=== PATIENT | female | born 1960 | race Caucasian/White ===

== ENCOUNTER 2019-02-06 05:49 | Day surgery (SDC) | payer BC ==
[2019-02-06] MEDS ORDERED: DEXAMETHASONE 4 MG/ML 1ML VIAL IVP ONE (05:50)
[2019-02-06] MEDS ORDERED: TRANEXAMIC ACID 1,000 MG/10 ML ML IV ONE (05:50)
[2019-02-06] MEDS ORDERED: GLYCOPYRROLATE 0.2 MG/ML ML IV ONE (05:50)
[2019-02-06] MEDS ORDERED: KETAMINE HCL 100MG/1ML VIAL INJ ONE (05:50)
[2019-02-06] MEDS ORDERED: VANCOMYCIN HCL 1 GM VIAL IVPB ONE (05:50)
[2019-02-06] MEDS ORDERED: PROPOFOL 10 MG/ML VIAL IV ONE (05:50)
[2019-02-06] MEDS ORDERED: MIDAZOLAM HCL 2MG/2ML VIAL IV ONE (05:50)
[2019-02-06] MEDS ORDERED: LIDOCAINE 2% MDV (20MG/ML) 20ML VIAL IV ONE (05:50)
[2019-02-06] MEDS ORDERED: ROPIVACAINE HCL (NAROPIN) /PF 5MG/ML 20ML VIAL IV ONE (05:50)
[2019-02-06] MEDS ORDERED: METOCLOPRAMIDE 10 MG TABLET PO ONE (06:00)
[2019-02-06] MEDS ORDERED: CEFAZOLIN 2 Gram 2 GM/50 ML BAG IVPB ONE (06:00)
[2019-02-06] MEDS ORDERED: SCOPOLAMINE 1 PATCH TDSY TD ONE (06:00)
[2019-02-06] MEDS ORDERED: FAMOTIDINE 20MG TABLET PO ONE (06:00)
[2019-02-06] MEDS ORDERED: CELECOXIB 100 MG CAPSULE PO ONE (06:00)
[2019-02-06] MEDS ORDERED: ACETAMINOPHEN 500 MG TABLET PO ONE (06:00)
[2019-02-06] MEDS ORDERED: VANCOMYCIN 1GM/200ML PREMIX 1 GM/200 ML PIGGYBACK IVPB ONE (06:00)
[2019-02-06 06:17] LABS: URINE APPEARANCE CLEAR; URINE BILIRUBIN NEGATIVE (NEGATIVE); URINE BLOOD NEGATIVE (NEGATIVE); URINE COLOR YELLOW; URINE GLUCOSE (UA) NEGATIVE (NEGATIVE); URINE KETONE NEGATIVE (NEGATIVE); URINE LEUKOCYTE ESTERASE NEGATIVE (NEGATIVE); URINE NITRITE NEGATIVE (NEGATIVE); URINE PROTEIN NEGATIVE (NEGATIVE)
[2019-02-06] MEDS ORDERED: RINGERS SOLUTION,LACTATED 1,000 ML IV ONE ×3 (06:40→09:26)
[2019-02-06 06:42] LABS: INR 1.1; PROTHROMBIN TIME (PATIENT) 10.9 SECONDS (9.5-12.1)
[2019-02-06 07:18] LABS: ABO GROUP A; ANTIBODY SCREEN NEGATIVE (NEGATIVE); RH TYPE POSITIVE
[2019-02-06] MEDS ORDERED: TRAMADOL HCL 50 MG TABLET PO PRN ×2 (08:18)
[2019-02-06] MEDS ORDERED: ACETAMINOPHEN W/ CODEINE 300MG/60MG TABLET PO PRN ×2 (08:18)
[2019-02-06] MEDS ORDERED: KETOROLAC 30 MG/ML VIAL IVP PRN ×2 (08:18)
[2019-02-06] MEDS ORDERED: METOCLOPRAMIDE 10 MG TABLET PO PRN (08:18)
[2019-02-06] MEDS ORDERED: MAGNESIUM HYDROXIDE 30 ML UDC PO PRN (08:18)
[2019-02-06] MEDS ORDERED: BISACODYL 10 MG SUPP RC PRN (08:18)
[2019-02-06] MEDS ORDERED: DIPHENHYDRAMINE HCL 25 MG CAPSULE PO PRN (08:18)
[2019-02-06] MEDS ORDERED: ACETAMINOPHEN W/ CODEINE 300MG/30MG TABLET PO PRN ×2 (08:18)
[2019-02-06] MEDS ORDERED: HYDROCODONE/APAP 7.5/325MG TABLET PO PRN ×2 (08:18)
[2019-02-06] MEDS ORDERED: NALOXONE 0.4 MG/1 ML VIAL IVP PRN (08:18)
[2019-02-06] MEDS ORDERED: AL HYDROX/MAG HYDROX 30ML UD PO PRN (08:18)
[2019-02-06] MEDS ORDERED: ACETAMINOPHEN 325 MG TAB PO PRN (08:18)
[2019-02-06] MEDS ORDERED: PROMETHAZINE HCL 25 MG TABLET PO PRN (08:18)
[2019-02-06] MEDS ORDERED: HYDROCODONE/APAP 5/325MG TABLET PO PRN ×2 (08:18)
[2019-02-06] MEDS ORDERED: ONDANSETRON 4 MG ODT TABLET SL PRN (08:18)
[2019-02-06] MEDS ORDERED: BUPIVACAINE 0.5% W/EPI MPF 30 ML VIAL SQ ONE (08:32)
[2019-02-06] MEDS ORDERED: BUPIVACAINE LIPOSOME 266MG/20ML VIAL SQ ONE (08:32)
[2019-02-06] MEDS ORDERED: DOCUSATE SODIUM 100 MG CAPSULE PO SCH (10:00)
[2019-02-06] MEDS ORDERED: DEXTROSE 5 % AND 0.9 % NACL 1,000 ML IV PRN (10:30)
[2019-02-06] MEDS ORDERED: VANCOMYCIN HCL 500 MG in 0.9 % SODIUM CHLORIDE 100ML 100 ML IVPB SCH (11:00)
--- NOTE | 2019-02-06 13:31 | Rehab Evaluation ---
Patient Information - Patient Information Diagnosis: L knee OA Ordered Treatment: PT Evaluate and Treat Status: Initial Evaluation Surgery: Yes (L TKA) Date of Surgery: 02/06/19 Past Medical/Surgical Hx: PAST MEDICAL/SURGICAL HISTORY Past Surgical History HYST PREM BILAT HIP REPLACEMENT PMH - Respiratory Hx Respiratory Disorders No PMH - Cardiovascular Hx Cardiovascular Disorders Yes Hx Deep Vein Thrombosis Yes: LEFT LEG X'S 2 LAST TIME 2015 ON COUMADIN Hx Hypertension Yes: PT STOPPED MEDS D/T SE'S ADVISED TO FU W PCP BEFORE SX Exercise Tolerance Fair PMH - Neuro Hx Neurological Disorders No PMH - GI Hx Gastrointestinal Disorders Yes Hx Gastroesophageal Reflux Yes: TAKES PRILOSEC OCCASSIONALLY PMH - Hx Genitourinary Disorders No Comment: S/P HYST PMH - Endocrine Hx Endocrine Disorders No PMH - Musculoskeletal Hx Musculoskeletal Disorders Yes Hx Arthritis Yes: LEFT KNEE, SHOULDERS PMH - Psych Hx Psychiatric Problems No PMH - Hematology/Oncology Hx Hematology/Oncology No Disorders Premorbid Status: Detail (Prior to surgery the pt. 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 The bathroom is equipped with the following: tub/shower combination, tub seat, hand held shower, standard height toilet. No grab bars are present in the bathroom. The patient has crutches.) Precautions: Shannon, Fall, Other (WBAT on the L LE.) - Time With Patient Total Time Spent With Patient (Min): 30 Treatment Procedures: Detail (Initial Evaluation, low complexity.) Subjective Information - Subjective Information Per Patient (The patient has complaints of L knee pain, level 1 using 0-10 pain scale.) Objective Data - Mental Status Patient Orientation: Oriented x3 - Visual Perception Appears within normal limits for therapeutic activities - ROM Not within normal limits (The patient's L knee AROM was limited as to be expected s/p surgery. All other LE AROM was limited.) - Strength/Tone Not within normal limits (The patient's LE strength was not tested s/p surgery however was functional ie: patient was ambulatory and able to lift LE's in and out of bed.) - Bed Mobility Independent (The patient was independent with supine to and from sit transfer.) - Transfers Independent (The patient was independent with sit to and from stand transfer.) - Balance Balance Sitting: Good Balance Standing: Good - Gait Detail (The patient ambulated with crutches a distance of 108 feet x 1 WBAT on the L LE using a correct reciprocal gait pattern. The patient ambulated on 3 steps with use one railing and crutches using correct gait pattern, independently/supervision for safety.) Therapy Assessment - Therapy Assessment Detail (The patient was indpendent with ambulation, transfers, bed mobility and TKA HEP. The patient has met all inpatient PT goals.) Patient Education - Patient Education Teaching Topic: Exercise/Activity (The patient completed the following TKA HEP: seated and supine heel slides, ankle pumps, quad sets, gluteal sets, SLR and hamstring sets.) Response: Return Demonstration Teaching Method: Discussion, Demonstration, Handout Teaching Recipient: Patient Barriers To Learning: None Problem List - Problem List Physical Therapy Problem List: Detail (Decreased L knee AROM and L LE strength as to be expected following surgery.) Goals - Goals Physical Therapy Goals: The patient has met all inpatient PT goals. Prognosis - Prognosis Good Plan - Plan Physical Therapy Plan: The patient is discharged from inpatient PT and is to receive Home PT services.
--- NOTE | 2019-02-06 14:16 | Rehab Evaluation ---
Patient Information - Patient Information Diagnosis: L knee OA Ordered Treatment: OT Evaluate and Treat Status: Initial Evaluation Surgery: Yes (L TKA) Date of Surgery: 02/06/19 Past Medical/Surgical Hx: PAST MEDICAL/SURGICAL HISTORY Past Surgical History HYST PREM BILAT HIP REPLACEMENT PMH - Respiratory Hx Respiratory Disorders No PMH - Cardiovascular Hx Cardiovascular Disorders Yes Hx Deep Vein Thrombosis Yes: LEFT LEG X'S 2 LAST TIME 2015 ON COUMADIN Hx Hypertension Yes: PT STOPPED MEDS D/T SE'S ADVISED TO FU W PCP BEFORE SX Exercise Tolerance Fair PMH - Neuro Hx Neurological Disorders No PMH - GI Hx Gastrointestinal Disorders Yes Hx Gastroesophageal Reflux Yes: TAKES PRILOSEC OCCASSIONALLY PMH - Hx Genitourinary Disorders No Comment: S/P HYST PMH - Endocrine Hx Endocrine Disorders No PMH - Musculoskeletal Hx Musculoskeletal Disorders Yes Hx Arthritis Yes: LEFT KNEE, SHOULDERS PMH - Psych Hx Psychiatric Problems No PMH - Hematology/Oncology Hx Hematology/Oncology No Disorders Premorbid Status: Detail (Prior to surgery the pt. was independent with all mobility, meal prep, laundry and home mgmt tasks.) Social History: Detail (The patient lives alone in a one story house with one step at the entrance with one handrail. The bathroom is equipped with the following: tub/shower combination, tub seat, hand held shower, standard height toilet. No grab bars are present in the bathroom. 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 Her grand daughter and daughter are available to help if needed.) Precautions: Santa Claus, Fall, Other (WBAT on the L LE.) - Time With Patient Total Time Spent With Patient (Min): 40 Treatment Procedures: Detail (OT eval low complexity) Subjective Information - Subjective Information Per Patient Objective Data - Pain Pain Present: Yes (07/14) - Mental Status Patient Orientation: Oriented x3 - Visual Perception Appears within normal limits for therapeutic activities - ROM Within normal limits (Primitivo UE AROM WNL) - Strength/Tone Within normal limits (Primitivo UE strength WNL) - Coordination Appears within normal limits for therapeutic activities - Bed Mobility Independent (Ind with supine to sit) - Transfers Independent (Ind with sit to stand from EOB and toilet heights.) - Balance Balance Sitting: Good Balance Standing: Good - Sensation Intact - Gait Detail (Pt ambulating in room with crutches and SBA.) - ADL's/IADL's Detail (Pt educated and able to demonstrate learning of modified LE dressing t echniques including doffing slipper socks and donning shorts, socks and tennis shoes. Reviewed kitchen and shower modifications, pt able to verbalize understanding.) Therapy Assessment - Therapy Assessment Detail (Pt able to demonstrate Ind with modified LE dressing techniques.) Problem List - Problem List Occupational Therapy Problem List: Detail (No current IP OT problems identified.) Goals - Goals Occupational Therapy Goals: No current IP OT goals identified. Prognosis - Prognosis Good Plan - Plan Occupational Therapy Plan: No further IP OT recommended. Thank you for this referral.
--- NOTE | 2019-02-16 14:10 | Operative Note ---
DATE OF SURGERY: 02/06/2019 PREOPERATIVE DIAGNOSIS: End-stage left knee arthrosis. POSTOPERATIVE DIAGNOSIS: End-stage left knee arthrosis. OPERATION: Left total knee arthroplasty. SURGEON: Cheikh Mayorga MD ANESTHESIA: Spinal. ANESTHESIA PROVIDER: ALLEY Botello COMPLICATIONS: None. ESTIMATED BLOOD LOSS: Minimal. TOURNIQUET TIME: No tourniquet. OPERATIVE FINDINGS: [id number] valgus arthrosis. COMPONENTS PLACED: A 2 g vancomycin cemented Fulton and Nephew Journey II Oxinium total knee arthroplasty system, size 7 femoral component, a size 7 mm tibial component, a 9 mm thick tibial poly insert, and 32 mm cemented patellar component. INDICATIONS: This is a 58-year-old female with end-stage bilateral knee arthrosis who failed nonoperative treatment. Scheduled for knee replacement. I explained all risks and benefits in detail for the diagnosis and procedure including but not limited to infection, nerve injury, vessel injury, persistent pain, stiffness, numbness, tingling in the knee, periprosthetic fracture, need for resection arthroplasty if components become infected or loosen, nerve injury, vessel injury, blood clot, and need for further procedures. All questions were answered. Rehab course was outlined. She agreed to proceed. PROCEDURE: The patient brought to the OR, placed in the supine position, prepped for surgery. Spinal anesthesia induced. The left lower extremity and knee were prepped and draped in sterile fashion. Left knee prepped again with Chloraprep after it was draped. Intraoperative timeout was performed. Next, the leg was exsanguinated. No tourniquet was used. The incision anterior was marked, infiltrated with 0.5% Marcaine with epinephrine. Skin and subcutaneous tissue dissected down. Incised the capsule medially along the medial border of the patella to the tibial tubercle. Incised the vastus medialis in line with its fibers. Elevated the capsule subperiosteally and medially. Partially resected the retropatellar fat pad. Carefully cauterized coating all the tissue with Aquamantys until we had adequate hemostasis and then flexed the knee. She had [id number] lateral component and also medial component arthrosis. Drilled intracondylar drill hole, inserted the intramedullary guide rhonda, 6- degree cutting block, aligned off the distal femoral condyles, and pinned it in +2 mm position and cut the distal femoral condyles. Next, on the distal femoral condyle, we placed a sizing jig and sized it to be right on size 7. Through the previously-placed pin holes, we placed a size 7 cutting jig. We dialed in the anterior cut so it would come out flush without notching. We cut that cut. It was a good flush cut. We then pinned the cutting jig and cut the remainder of chamfer cuts in the usual fashion. Next, placed a size trial 7 trial femoral component, centered it, pinned it, and placed the resection collet, reamed out and box osteotomed out the cruciate bone block. Attention was turned to the tibia. Placed the external alignment jig in the tibia after exposing it, seated the spikes in the tubercular groove 2 fingerbreadths distal to the anterior tibial cortex in reference for a 7 mm cut off the higher lateral plateau. We pinned the cutting jig provisionally through anterior-posterior pins. We rechecked the cutting jig with a drop rhonda centered on the tibial anatomic axis and cut the tibia and cross-pinned and completed fixation and cut the tibia. Next, we removed osteophytes off the posterior femoral condyle. Checked the flexion/extension gaps. She had symmetric flexion/extension gaps with a 9 mm thick poly insert. Allowed for 2-3 mm of varus/valgus laxity in flexion/extension. Overall alignment cuts in extension was anatomic in valgus orientation with alignment rhonda centered on the hip joint and ankle joint. Next, took in flexion and sized the tibial baseplate to be 7. We placed all trial components, set the rotation tibial baseplate again extension using the alignment rhonda centered on hip joint and ankle joint. Marked pastor on the anterior tibial cortex off the laser pastor of the tibial baseplate. Attention was turned to the patella, and measured the patella to be 22 mm. We cut the cutting jig at 13 mm to allow for a 9 mm thick insert. Cut the tibia, cut the patella, chamfered off the lateral patellar facet, and remeasured it right on 13. We sized the patella to be 32, medialized as much as possible, drilled 3 peg holes. Placed the trial patella component, did range of motion. Mixed cement. The patella tracked nicely handsfree, full extension and flexion to 140-15- degrees, again symmetric flexion/extension gap. Next, we took the knee in flexion, seated the tibial baseplate off the previously placed electrocautery pastor, pinned it in place and reamed out and keel punched the keel hole. Next, we changed gloves, put in a clean sheet. Copiously irrigated natividad surfaces and with antibiotic solution. Impacted down the tibial component removing excess cement, then the femoral component removing excess cement, then placed a tibial poly liner, held the knee in extension until the cement hardened. Clamped down the patella component. Once cement hardened, took the knee in flexion. Distracted the knee with the bone hook and sponge and removed trial patella tibial component. injected the posterior capsule medial and lateral with our 0.5% Marcaine with epinephrine, tranexamic acid, and Exparel mixtures and then inserted the real tibial poly insert, verified it was interlocked medially and laterally. Found the range of motion to be the same. Irrigated copiously, closed the capsule and vastus medialis in flexion after we cauterized again with running #2 quill suture. Irrigated again, closed skin with 2-0 Vicryl and a temporary dressing was applied with Acticoat to be changed to ANGEL dressing prior to discharge. The patient tolerated the procedure well. No intraoperative complications. Sponge, needle, and blade counts correct. Recovery room stable, neurovascular intact. Discharged as an outpatient. She will have home therapy nurse start today and follow up in 2 weeks. CHRISTIANO
== END 2019-02-06 14:45 | disposition home health service (06) ==
LOC: SUR 05:49 → MEDSURG 10:29 → SUR 14:45
PROVIDERS: ATTEND Orthopaedic Surgery
DX: M17.12 Unilateral primary osteoarthritis, left knee (principal); Z79.01 Long term (current) use of anticoagulants; K21.9 Gastro-esophageal reflux disease without esophagitis; M19.90 Unspecified osteoarthritis, unspecified site; Z86.718 Personal history of other venous thrombosis and embolism
CPT/HCPCS: 27447; 01402; 64447; 85610; 81003; 86900; 86901; 86850; J3370 ×2; C9290; J3490 ×2; J2795; 76942; J7120

== ENCOUNTER 2019-06-19 05:45 | Day surgery (SDC) | payer BC ==
[2019-06-19] MEDS ORDERED: MIDAZOLAM HCL 2MG/2ML VIAL IV ONE (05:46)
[2019-06-19] MEDS ORDERED: DEXAMETHASONE 4 MG/ML 1ML VIAL IVP ONE (05:46)
[2019-06-19] MEDS ORDERED: ROPIVACAINE HCL (NAROPIN) /PF 5MG/ML 20ML VIAL IV ONE (05:46)
[2019-06-19] MEDS ORDERED: PROPOFOL 10 MG/ML VIAL IV ONE (05:46)
[2019-06-19] MEDS ORDERED: LIDOCAINE 2% MDV (20MG/ML) 20ML VIAL IV ONE (05:46)
[2019-06-19] MEDS ORDERED: *PACU ONLY* KETAMINE HCL 10 MG/ML (20ML) VIAL IV ONE (05:46)
[2019-06-19] MEDS ORDERED: FENTANYL PF 100MCG/2ML VIAL IV ONE (05:46)
[2019-06-19] MEDS ORDERED: CEFAZOLIN 2 Gram 2 GM/50 ML BAG IVPB ONE (06:00)
[2019-06-19] MEDS ORDERED: CEFAZOLIN 1 Gram 1 GM/50 ML BAG IVPB ONE (06:00)
[2019-06-19] MEDS ORDERED: ACETAMINOPHEN 500 MG TABLET PO ONE (06:00)
[2019-06-19] MEDS ORDERED: METOCLOPRAMIDE 10 MG TABLET PO ONE (06:00)
[2019-06-19] MEDS ORDERED: SCOPOLAMINE 1 PATCH TDSY TD ONE (06:00)
[2019-06-19] MEDS ORDERED: CELECOXIB 100 MG CAPSULE PO ONE (06:00)
[2019-06-19] MEDS ORDERED: VANCOMYCIN 1GM/200ML PREMIX 1 GM/200 ML PIGGYBACK IVPB ONE (06:00)
[2019-06-19] MEDS ORDERED: FAMOTIDINE 20MG TABLET PO ONE (06:00)
[2019-06-19 06:14] LABS: URINE BILIRUBIN NEGATIVE (NEGATIVE); URINE BLOOD TRACE-I (NEGATIVE); URINE COLOR YELLOW; URINE GLUCOSE (UA) NEGATIVE (NEGATIVE); URINE KETONE NEGATIVE (NEGATIVE); URINE LEUKOCYTE ESTERASE NEGATIVE (NEGATIVE); URINE NITRITE NEGATIVE (NEGATIVE); URINE PROTEIN NEGATIVE (NEGATIVE); URINE UROBILINOGEN 0.2 E.U./dL (0.20 - 1.00)
[2019-06-19 06:17] LABS: URINE APPEARANCE SL CLOUDY
[2019-06-19 06:24] LABS: URINE BACTERIA 3+; URINE WBC 0 - 2 (0-2/hpf)
[2019-06-19 06:28] LABS: INR 1.1; PARTIAL THROMBOPLASTIN TIME 25.9 SECONDS (24.5-39.1); PROTHROMBIN TIME (PATIENT) 11.2 SECONDS (9.5-12.1)
[2019-06-19] MEDS ORDERED: RINGERS SOLUTION,LACTATED 1,000 ML IV ONE ×3 (06:45→09:28)
[2019-06-19 07:31] LABS: ABO GROUP A; ANTIBODY SCREEN NEGATIVE (NEGATIVE); RH TYPE POSITIVE
[2019-06-19] MEDS ORDERED: HYDROCODONE/APAP 7.5/325MG TABLET PO PRN (08:29)
[2019-06-19] MEDS ORDERED: ACETAMINOPHEN W/ CODEINE 300MG/30MG TABLET PO PRN ×2 (08:29)
[2019-06-19] MEDS ORDERED: HYDROMORPHONE HCL 2 MG/ML VIAL IM PRN ×2 (08:29)
[2019-06-19] MEDS ORDERED: ACETAMINOPHEN 325 MG TAB PO PRN (08:29)
[2019-06-19] MEDS ORDERED: PROMETHAZINE HCL 25 MG TABLET PO PRN (08:29)
[2019-06-19] MEDS ORDERED: HYDROCODONE/APAP 5/325MG TABLET PO PRN ×2 (08:29)
[2019-06-19] MEDS ORDERED: ACETAMINOPHEN W/ CODEINE 300MG/60MG TABLET PO PRN (08:29)
[2019-06-19] MEDS ORDERED: ONDANSETRON 4 MG ODT TABLET SL PRN (08:29)
[2019-06-19] MEDS ORDERED: BISACODYL 10 MG SUPP RC PRN (08:29)
[2019-06-19] MEDS ORDERED: TRAMADOL HCL 50 MG TABLET PO PRN ×2 (08:29)
[2019-06-19] MEDS ORDERED: MAGNESIUM HYDROXIDE 30 ML UDC PO PRN (08:29)
[2019-06-19] MEDS ORDERED: DIPHENHYDRAMINE HCL 25 MG CAPSULE PO PRN (08:29)
[2019-06-19] MEDS ORDERED: AL HYDROX/MAG HYDROX 30ML UD PO PRN (08:29)
[2019-06-19] MEDS ORDERED: KETOROLAC 30 MG/ML VIAL IVP PRN (08:29)
[2019-06-19] MEDS ORDERED: NALOXONE 0.4 MG/1 ML VIAL IVP PRN (08:29)
[2019-06-19] MEDS ORDERED: METOCLOPRAMIDE 10 MG TABLET PO PRN (08:29)
[2019-06-19] MEDS ORDERED: TRANEXAMIC ACID 1,000 MG/10 ML ML IU ONE (08:58)
[2019-06-19] MEDS ORDERED: BUPIVACAINE 0.5% W/EPI MPF 30 ML VIAL IU ONE (08:58)
[2019-06-19] MEDS ORDERED: BUPIVACAINE LIPOSOME 266MG/20ML VIAL SQ ONE (08:59)
[2019-06-19] MEDS ORDERED: VANCOMYCIN HCL 1 GM VIAL IU ONE (08:59)
[2019-06-19] MEDS ORDERED: TRANEXAMIC ACID 1,000 MG/10 ML ML IVPB ONE (08:59)
[2019-06-19] MEDS ORDERED: VANCOMYCIN HCL 1 GM VIAL IR ONE (08:59)
[2019-06-19] MEDS ORDERED: BUPIVACAINE 0.5% W/EPI MPF 30 ML VIAL SQ ONE (09:36)
[2019-06-19] MEDS ORDERED: DOCUSATE SODIUM 100 MG CAPSULE PO SCH (10:00)
[2019-06-19] MEDS: FENTANYL CITRATE/PF (PACU) 50 MCG/ML VIAL IVP PRN ×4 (10:15→10:28)
[2019-06-19] MEDS ORDERED: VANCOMYCIN HCL 500 MG in 0.9 % SODIUM CHLORIDE 100ML 100 ML IVPB SCH (11:00)
[2019-06-19] MEDS ORDERED: DEXTROSE 5 % AND 0.9 % NACL 1,000 ML IV PRN (11:00)
--- NOTE | 2019-06-19 11:28 | Operative Note ---
DATE OF SURGERY: 06/19/2019 PREOPERATIVE DIAGNOSIS: END STAGE ARTHROSIS RIGHT KNEE. POSTOPERATIVE DIAGNOSIS: END STAGE ARTHROSIS RIGHT KNEE. OPERATION: RIGHT TOTAL KNEE ARTHROPLASTY. SURGEON: Cheikh Mayorga M.D. ANESTHESIA: Spinal. ANESTHESIA PROVIDER: HEAVENLY Chadwick CRNA COMPLICATIONS: None. ESTIMATED BLOOD LOSS: Minimal. OPERATIVE FINDINGS: Bone on bone medial compartment arthrosis. COMPONENTS PLACED: 2 gram Vancomycin cemented Fulton and Nephew Journey II Oxinium size 7 femoral component, a size 7 tibial baseplate, 12 mm thick tibial poly insert, and 32 mm cemented patellar component. INDICATIONS: This is a 59-year-old female with end stage bilateral knee arthrosis status post left knee arthroplasty done by myself a month ago or so and she is now scheduled for a right knee replacement. I explained all risks and benefits in detail for the diagnosis and procedure including, but not limited to infection, nerve injury, vessel injury, persistent pain, stiffness, numbness, tingling in the knee, periprosthetic fracture, need for resection arthroplasty if components become infected or loose, nerve injury, vessel injury, blood clot and need for anticoagulation to prevent blood clots and risks associated with the use of these medications. All of her questions were answered. Rehab course was outlined. She agreed to proceed. PROCEDURE: The patient was brought to the Operating Room, placed in the supine position, prepped for surgery. Spinal anesthesia was induced. The right lower extremity and knee were prepped and draped in sterile fashion. The right knee was prepped again with ChloraPrep after it was draped. Intraoperative timeout was performed. Next we exsanguinated the leg with Esmarch, flexed the knee, we did not use tourniquet during the entire case, we used Aquamantys electrocautery during the entire case at every level. Next, we infiltrated the area with 0.5% Marcaine with Epinephrine, Exparel and tranexamic acid mixture. The skin and subcutaneous tissues were dissected down and medial and lateral skin flaps were made and we incised the capsule medially along the medial border of the patella to the tibial tubercle. Incised the vastus medialis in line with its fibers using meal lateral approach. Everted patella partially resected the retropatellar fat pad. Elevated capsule subperiosteally and medially. We used Aquamantys again at every level. Next, we partially resected the menisci, the ACL was absented, we drilled and flexed the knee. She had bone on bone medial compartment arthrosis. Drilled intracondylar drill, inserted the intramedullary guide rhonda, 6-degree cutting block, aligned off the distal femoral condyles, and pinned it in the +2 mm position and cut the distal femoral condyles. Next, we placed a sizing jig on the distal femoral condyle and sized it to be right on size 7. Through the previously placed pin holes, we placed a 5-in-1 cutting jig, we dialed the anterior cute so it would come out flush without notching. We cut the anterior cut, it was a good cut and then we pinned it, we cut the remainder of chamfer cuts in the usual fashion. Next, we placed a size 7 trial component, centered it, pinned it, inserted a a resection collet, reamed out and box osteomed out the cruciate bone block. Attention was then turned to the tibia. Seated the external alignment jig after exposing it in the spikes of the external alignment jig in the tubercular groove 2 fingerbreadths distal to the anterior tibial cortex and off the centered tibial tubercle in reference for a 7 mm cut off the lateral plateau. We pinned the cutting jig provisionally in place. Next we inserted a drop rhonda into the cutting jig and rechecked alignment cut to make sure it is perpendicular anatomic axis and then cross pinned and cut it to complete its fixation and cut the tibia. Next, we removed osteophytes off the posterior femoral condyle. Checked the flexion/extension gaps, basically sized it up to a size 12 mm thick block, this allowed for 1-2 mm of varus/valgus laxity in flexion/extension. Overall alignment cuts in extension was anatomic in valgus orientation with alignment rhonda centered on the hip joint and ankle joint. Next we took the knee in flexion, we sized the tibial baseplate to be a size 7. We replaced all trial components , set the rotation tibial baseplate again extension using the alignment rhonda centered on hip joint and ankle joint. Marked all pen pastor off the laser marked anterior tibial baseplate. Attention was turned to the patella, and measured the patella to be 23 mm. We got the cutting jig at 14 mm to allow for a 9 mm thick poly insert and cut the patella. We sized the patella to be 32, medialized as much as possible, drilled 3 peg holes, and inserted the patellar component and then did a trial range of motion. Mixed cement. The patella tracked nicely handsfree, full extension and flexion to 130-140 degrees, again symmetric flexion/extension gap. Next, we took the knee in flexion, we exposed the proximal tibial, we cauterized again the posterior capsule with our Aquamantys and seated the tibial baseplate off the previous placed electrocautery pastor, pinned it in place and drilled out and keel punched the keel hole. Next, we changed gloves, brought out a clean sheet. Copiously irrigated bony surfaces with antibiotic solution. Then we used our CarboJet to dry off the tibial bone surface first as much as possible and then inserted the cement. We placed a drill bit there to prevent cement from going down the tibial hole and then removed that and then impacted down the real tibial component removing excess cement and then the femoral component again in the same fashion using the CarboJet and impacted it down removing excess cement. We placed the trial tibial polyp line and clamped down the patella component removing excess cement until the cement held the knee in extension and removed all excess cement. Next we took the knee in flexion, distracted the knee with the bone hook and sponge, and removed any excess cement off the edges of the components, injected the posterior capsule with our 0.5% Marcaine with Epinephrine, tranexamic acid and Exparel mixture and then inserted the real tibial poly insert, verified it was interlocked medially and laterally, and fount the range of motion to be the same. Irrigated copiously, closed the capsule in flexion using running #2 Quill suture, irrigated again, and then injected our mixture again with some more 0.5% Marcaine with Epinephrine subcutaneous and deep and then closed the skin with several interrupted buried 2-0 Vicryl in flexion. A sterile dressing was applied with ANGEL dressing. The patient tolerated the procedure well. No intraoperative complications. Sponge, needle, and blade counts correct. Recovery Room stable. Neurovascular intact. Discharged as an outpatient. Follow-up in two weeks. JOB NUMBER: [id number] MTDD
--- NOTE | 2019-06-19 13:26 | Rehab Evaluation ---
Patient Information - Patient Information Diagnosis: R knee DJD Ordered Treatment: PT Evaluate and Treat Status: Initial Evaluation Surgery: Yes (R knee TKA) Date of Surgery: 06/19/19 Past Medical/Surgical Hx: PAST MEDICAL/SURGICAL HISTORY Past Surgical History BRIJESH LEFT KNEE LTKA 02-06-19 HYST PREM BILAT HIP REPLACEMENT PMH - Respiratory Hx Respiratory Disorders No PMH - Cardiovascular Hx Cardiovascular Disorders Yes Hx Deep Vein Thrombosis Yes: LEFT LEG X'S 2 LAST TIME 2015 ON COUMADIN Hx Hypertension Yes: HX OF ON NO MEDS Exercise Tolerance Fair PMH - Neuro Hx Neurological Disorders No PMH - GI Hx Gastrointestinal Disorders Yes Hx Gastroesophageal Reflux Yes: TAKES PRILOSEC OCCASSIONALLY PMH - Hx Genitourinary Disorders No Comment: S/P HYST PMH - Endocrine Hx Endocrine Disorders No PMH - Musculoskeletal Hx Musculoskeletal Disorders Yes Hx Arthritis Yes: RIGHT KNEE, SHOULDERS PMH - Psych Hx Psychiatric Problems No PMH - Hematology/Oncology Hx Hematology/Oncology No Disorders Premorbid Status: Detail (The patient was independent with all mobility prior to surgery) Social History: Detail (The patient lives in a one story house with leobardo frausto 12 steps and 2 railings at both of the enterances. The bathroom is equipped with: a tub/shower combination, shower bench, hand held shower, standard height toilet with riser seat with hand rails. The patient has crutches and a quad cane.) Precautions: Anthony, Fall, Other (WBAT on the R LE) - Time With Patient Total Time Spent With Patient (Min): 30 Treatment Procedures: Detail (Initial Evaluation, low complexity) Subjective Information - Subjective Information Per Patient (The patient has complaints of level 1 R knee pain using the 0-10 pain scale.) Objective Data - Mental Status Patient Orientation: Oriented x3 - Visual Perception Appears within normal limits for therapeutic activities - ROM Not within normal limits (The paitent's R knee AROM is limited as to be excepted following TKA surgery. R hip and knee AROM was WFL.) - Strength/Tone Not within normal limits (The patient's LE strength was not tested s/p surgery however is functional ie: pt. was independent with bed mobility and was ambulatory on levels and stairs.) - Bed Mobility Independent (The patient was independent with supine to and from sit transfer.) - Transfers Independent (The patient was independent with sit to and from stand transfer and toilet transfer.) - Balance Balance Sitting: Good Balance Standing: Good - Gait Detail (The patient ambulated independently with crutches a distance of 100 feet x w WBAT on the R LE. The patient ambulated on a flight of 3 stairs and a flight of 7 stairs , with one crutch and one railing descending stairs and one railing ascending stairs with supervision for safety only.) Therapy Assessment - Therapy Assessment Detail (The patient was independent with bed mobility, transfers and ambulation. The patient has met all inpt. PT goals and is discharged from inpt. PT.) Patient Education - Patient Education Teaching Topic: Exercise/Activity (The patient's HEP was reviewed including SLR, ankle pumps, quad sets, hamstring sets, heelslides seated and supine and gluteal sets.) Response: Return Demonstration Teaching Method: Discussion, Handout Teaching Recipient: Patient Barriers To Learning: None Problem List - Problem List Physical Therapy Problem List: Detail (Decreased R knee AROM s/p surgery and bilateral decreased LE strength.) Goals - Goals Physical Therapy Goals: All inpt. PT goals have been met. Plan - Plan Physical Therapy Plan: The patient is discharged from inpt. PT and is to receive Home PT.
--- NOTE | 2019-06-19 13:55 | Rehab Evaluation ---
Patient Information - Patient Information Diagnosis: R knee DJD Ordered Treatment: OT Evaluate and Treat Status: Initial Evaluation Surgery: Yes (R knee TKA) Date of Surgery: 06/19/19 Past Medical/Surgical Hx: PAST MEDICAL/SURGICAL HISTORY Past Surgical History BRIJESH LEFT KNEE LTKA 02-06-19 [facility] PREM BILAT HIP REPLACEMENT PMH - Respiratory Hx Respiratory Disorders No PMH - Cardiovascular Hx Cardiovascular Disorders Yes Hx Deep Vein Thrombosis Yes: LEFT LEG X'S 2 LAST TIME 2015 ON COUMADIN Hx Hypertension Yes: HX OF ON NO MEDS Exercise Tolerance Fair PMH - Neuro Hx Neurological Disorders No PMH - GI Hx Gastrointestinal Disorders Yes Hx Gastroesophageal Reflux Yes: TAKES PRILOSEC OCCASSIONALLY PMH - Hx Genitourinary Disorders No Comment: S/P HYST PMH - Endocrine Hx Endocrine Disorders No PMH - Musculoskeletal Hx Musculoskeletal Disorders Yes Hx Arthritis Yes: RIGHT KNEE, SHOULDERS PMH - Psych Hx Psychiatric Problems No PMH - Hematology/Oncology Hx Hematology/Oncology No Disorders Premorbid Status: Detail (The patient was independent with all mobility, meal prep and laundry prior to surgery. She has help with housework and family will be available to assist following discharge home.) Social History: Detail (The patient lives in a one story house with grandson with 12 steps and 2 railings at both of the entrances. The bathroom is equipped with: a tub/shower combination, shower bench, hand held shower, standard height toilet with riser seat with hand rails. The patient has crutches and a quad cane.) Precautions: [place], Fall, Other (WBAT right LE) - Time With Patient Total Time Spent With Patient (Min): 35 Treatment Procedures: Detail (OT eval low complexity) Subjective Information - Subjective Information Per Patient Objective Data - Pain Pain Present: Yes (07/14) - Mental Status Patient Orientation: Oriented x3 - Visual Perception Appears within normal limits for therapeutic activities - ROM Within normal limits (Primitivo UE AROM WNL) - Strength/Tone Within normal limits (Primitivo UE strength WNL) - Coordination Appears within normal limits for therapeutic activities - Bed Mobility Independent (Ind with supine to sit) - Transfers Independent (Ind with sit to stand from EOB and toilet) - Balance Balance Sitting: Good Balance Standing: Good - Sensation Intact - Gait Detail (Pt ambulating in room with crutches and SBA) - ADL's/IADL's Detail (Reviewed modified LE dressing techniques, pt able to doff slipper sock and don steve sock (with assist) and don shorts and slip on tennis shoes. Pt reports she is confident with kitchen and shower safety and modifications and did not need a review.) Therapy Assessment - Therapy Assessment Detail (Pt is Ind with modified LE dressing techniques.) Problem List - Problem List Occupational Therapy Problem List: Detail (No current IP OT problems identified.) Goals - Goals Occupational Therapy Goals: No current IP OT goals identified. Prognosis - Prognosis Good Plan - Plan Occupational Therapy Plan: No further IP OT recommended. Pt discharged from OT at this time. Thank you for this referral.
== END 2019-06-19 15:00 | disposition home health service (06) ==
LOC: SUR 05:45 → MEDSURG 10:53 → SUR 15:00
PROVIDERS: ATTEND Orthopaedic Surgery
DX: M17.11 Unilateral primary osteoarthritis, right knee (principal); Z79.01 Long term (current) use of anticoagulants; K21.9 Gastro-esophageal reflux disease without esophagitis; I10 Essential (primary) hypertension; Z86.718 Personal history of other venous thrombosis and embolism; E66.9 Obesity, unspecified
CPT/HCPCS: 76942; 81001; 85610; 85730; 86850; 86900; 86901; C1776; J1885; J3370; J7120